=== PATIENT | male | born 1975 | race Caucasian/White ===

== ENCOUNTER 2024-08-23 08:33 | Day surgery (SDC) | payer OTHER ==
[~2024-08-23] VITALS: Ht 177.8 cm; Wt 84.4 kg
[~2024-08-23 08:33] MED LIST: Lactated Ringer's 1,000 ML IV ONE
[2024-08-23] MEDS ORDERED: NORTRIPTYLINE H1012 PO (09:01)
[2024-08-23] MEDS ORDERED: Budeprion Xl300 MG PO (09:01)
[2024-08-23] MEDS ORDERED: GUANFACINE HCL E3 MG (09:02)
[2024-08-23] MEDS ORDERED: Lactated Ringer's 1,000 ML IV ONE (09:20)
[2024-08-23] MEDS ORDERED: Midazolam HCl 1MG / ML 2ML Vial ONE (09:23)
[2024-08-23] MEDS ORDERED: FentaNYL Citrate 50 MCG/ML 2 ML Injection ONE ×2 (09:23→11:19)
[2024-08-23] MEDS ORDERED: CeFAZolin Sodium 2,000 MG VIAL ONE (09:24)
[2024-08-23] MEDS ORDERED: propofoL 20 ML IV ONE ×2 (09:24→10:05)
--- NOTE | 2024-08-23 10:01 | NUR ---
08/23/24 Kalina1 Mansi Lazo [id number]: DISCUSSED WITH DR MICHEL THAT PATIENT REPORTED HE SOMETIMES HAS SOME DYSPHAGIA WHICH IMPROVES AFTER HE DRINKS SOME GLASSES OF WATER, HAS DISCUSSED WITH DOCTORS BEFORE BUT HAS NOT REQUIRED FOLLOW UP CARE.
--- NOTE | 2024-08-23 10:20 | NUR ---
08/23/24 1020 Aminata Banks 1 MG OF EPI ADDED TO FIRST BAG OF LR FOR IRREGTAION 0.15 MG OF EPI (1MG/ML) ADDED TO 0.5% BUPIVACAINE (150MG/30ML) TO MAKE BUPIVACAINE 0.5% WITH EPI 1:200,000 ON FIELD.
[2024-08-23] MEDS ORDERED: Bupivacaine 0.5% W/EPI 1:200000 SDV 30ML INJ ONE (10:25)
[2024-08-23] MEDS ORDERED: EPINEPhrine HCl 1 MG/ML 1ML Amp XX ONE (10:26)
[2024-08-23] MEDS ORDERED: HYDROmorphone HCl/Pf 1MG SYR ONE (10:29)
[2024-08-23] MEDS ORDERED: Ondansetron HCl 2 MG / ML 2ML Vial ONE (10:37)
[2024-08-23] MEDS ORDERED: Dexamethasone Sod Phos 10 MG/ML 1ML VIAL ONE (10:37)
[2024-08-23] MEDS ORDERED: Ketorolac Tromethamine 30mg Vial ONE ×2 (10:38)
--- NOTE | 2024-08-23 12:55 | NUR ---
08/23/24 Katharina5 Gautam Ramirez PT STATED PO OPIATE MEDICATIONS CAUSE HIM SEVERE ABDOMINAL PAIN . PT HAD NORCO 5/325 ESCRIPTED TO PHARMACY. HE STATED HE WOULD NOT TAKE THAT. DR. GOULD CONSULTED AND ORDERED PT USE OTC TYLENOL/IBUPROFEN FOR PAIN. PT INSTRUCTED TO USE OTC TYLENOL AND IBUPROFEN NEEDED FOR PAIN; FOLLOW DIRECTIONS ON PACKAGE; AND DO NOT EXCEED 4,000MG TYLENOL. PT'S HR MAINTAINED IN 50'S AND HIGH 40'S IN SDU. HE EXPERIENCED BREIF DROPS LOW 42 BPM. PT DENIED DIZZINESS, NAUSEA, WEAKNESS, SOB, AND OTHER CARDIAC SYMPTOMS. NONE WERE OBSERVED. DR. MICHEL CONSULTED AND APPROVED D/C WITH DOCUMENTED SINUS RHYTHM. PT'S RHYTHM NOTED TO BE SINUS WITH THREE LEAD ECG (SEE STRIP). DR. MICHEL APPROVED D/C. PT REPORTED TOLERABLE 3/10 PAIN AT TIME OF D/C (FLACC 1/10). HE DENIED NAUSEA, AND EXPRESSED READINESS TO RETURN HOME. PT STATED, "I FEEL GREAT."
== END 2024-08-23 12:40 | disposition home or self-care (01) ==
LOC: ORSCSDS 08:33
PROVIDERS: Orthopaedic Surgery
PROC: 0SBD4ZZ Excision of Left Knee Joint, Percutaneous Endoscopic Approach (ICD-10-PCS; principal; 2024-08-23 10:15)
DX: S83.232A Complex tear of medial meniscus, current injury, left knee, initial encounter (principal); M17.12 Unilateral primary osteoarthritis, left knee; M94.262 Chondromalacia, left knee; F32.A Depression, unspecified; Z79.899 Other long term (current) drug therapy
CPT/HCPCS: J0171; J0690; J1100; J1171; J1885; J2250; J2405; J2704; J3010; J7120